=== PATIENT | female | born 1945 | race Caucasian/White ===

== ENCOUNTER 2016-09-22 09:50 | Inpatient (IN) ==
[2016-09-19 13:13] LABS: Appearance,Urine HAZY; Bilirubin,Urine NEG (NEG); Color,Urine YELLOW; Glucose,Urine (UA) NEGATIVE (NEG); Leukocyte Esterase,Urine NEG /uL (NEG); Nitrate,Urine NEG (NEG); Protein,Urine NEG (NEG); Specific Gravity,Urine 1.008 (1.000-1.035); Urine Blood NEG mg/dL (<0.03); Urobilinogen,Urine NEG (NEG)
[2016-09-19 13:17] LABS: Basophils # (Auto) 0.1 K/mcL (0.0-0.3); Basophils % (Auto) 0.8 % (0.0-2.0); Eosinophils # (Auto) 0.1 K/mcL (0.0-0.7); Eosinophils % (Auto) 0.9 % (0.0-7.0); Granulocytes % (Auto) 76.3 % (38.0-78.0); Lymphocytes # (Auto) 0.8 K/mcL (1.5-4.8); Lymphocytes % (Auto) 12.1 % (15.5-49.0); Mean Cell Volume 100.6 fL (80.0-100.0); Mean Corpuscular HGB Conc 33.6 g/dL (31.0-36.0); Mean Corpuscular Hemoglobin 33.8 pg (26.0-34.0); Monocytes # (Auto) 0.7 K/mcL (0.1-0.9); Monocytes % (Auto) 9.9 % (1.0-9.0); Platelet Count 188 K/mcL (140-440); RBC 3.69 M/mcL (4.00-5.20); Red Cell Distribution Width 12.5 % (11.5-14.5)
[2016-09-19 13:50] LABS: ALT/SGPT 36 U/l (0-40); Albumin/Globulin Ratio 1.2 (1.0-2.3); Alkaline Phosphatase 60 U/L (39-117); Blood Urea Nitrogen 22 mg/dl (8-23)
[~2016-09-22 09:50] MED LIST: ceFAZolin 1 GM VIAL IV SCH
--- NOTE | 2016-09-22 11:20 | XRay Report ---
CLINICAL INFORMATION: Preop COMPARISON: Lumbar MRI from 04/09/2016 FINDINGS: Anterior/posterior fusion and laminectomy changes at L4-5 are provided by interbody graft, pedicle screws and short body struts. There is 5 mm of L4 anterior subluxation which is unchanged. Remaining lumbar spine is anatomically aligned. Moderate L3-4 degenerative disc disease has progressed. No osseous abnormality. Soft tissues are normal. SI joints are unremarkable IMPRESSION: L4-5 anterior/posterior fusion changes with 6 mm of persistent L4 anterior subluxation - unchanged from prior MRI. Moderate L3-4 degenerative disease - worsening Interpreted and Authenticated by: Reggie Huber 09/22/16
[2016-09-22] MEDS ORDERED: DEXAMETHASONE 10 MG/ML VIAL IV ONE (14:25)
[2016-09-22] MEDS ORDERED: LIDOCAINE HCL/PF 100 MG/5 ML SYRINGE IV ONE (14:25)
[2016-09-22] MEDS ORDERED: KETAMINE 100 MG/ML ML IV ONE (14:25)
[2016-09-22] MEDS ORDERED: GLYCOPYRROLATE 0.2 MG/ML VIAL IV ONE (14:25)
[2016-09-22] MEDS ORDERED: TRANEXAMIC ACID 1,000 MG/10 ML VIAL IV ONE (14:25)
[2016-09-22] MEDS ORDERED: SUCCINYLCHOLINE 20 MG/ML ML IV ONE (14:25)
[2016-09-22] MEDS ORDERED: ONDANSETRON 4 MG/2 ML VIAL IV ONE (14:25)
[2016-09-22] MEDS ORDERED: PROPOFOL 200 MG/20 ML VIAL IV ONE (14:25)
[2016-09-22] MEDS ORDERED: MIDAZOLAM 5 MG/5 ML VIAL IV ONE (14:25)
[2016-09-22] MEDS ORDERED: fentaNYL 250 MCG/5 ML VIAL IV ONE (14:25)
[2016-09-22] MEDS ORDERED: GUM MASTIC/STORAX/MSAL/ALCOHOL 1 DOSE DROPERETTE TOPICAL ONE (15:59)
[2016-09-22] MEDS ORDERED: GELATIN SPONGE,ABSORBABLE 1 EACH SPONGE TOPICAL ONE (15:59)
[2016-09-22] MEDS ORDERED: GELATIN SPONGE,ABSORBABLE 1 GM POWDER TOPICAL ONE (15:59)
[2016-09-22] MEDS ORDERED: THROMBIN (BOVINE) 5,000 UNIT VIAL TOPICAL ONE (16:11)
[2016-09-22] MEDS ORDERED: LACTATED RINGERS 250 ML IV PRN (16:42)
[2016-09-22] MEDS ORDERED: IPRATROPIUM/ALBUTEROL 3 ML AMPUL.NEB NEB PRN (16:42)
[2016-09-22] MEDS ORDERED: ONDANSETRON 4 MG/2 ML VIAL IV PRN ×2 (16:42→17:50)
[2016-09-22] MEDS ORDERED: FLUMAZENIL 0.1 MG/ML ML IV PRN (16:42)
[2016-09-22] MEDS ORDERED: METHOCARBAMOL 1,000 MG/10 ML VIAL IV PRN (16:42)
[2016-09-22] MEDS ORDERED: MEPERIDINE 25 MG/ML SYRINGE IV PRN (16:42)
[2016-09-22] MEDS ORDERED: NALOXONE HCL 0.4 MG/ML VIAL IV PRN (16:42)
[2016-09-22] MEDS ORDERED: BENZOCAINE/MENTHOL 1 LOZENGE PO PRN ×2 (16:42→17:50)
[2016-09-22] MEDS ORDERED: PROMETHAZINE 25 MG/ML VIAL IV PRN (16:42)
[2016-09-22] MEDS ORDERED: HYDROmorphone 2 MG/ML SYRINGE IV PRN (16:42)
[2016-09-22] MEDS ORDERED: diphenhydrAMINE 50 MG/ML VIAL IV PRN (16:42)
[2016-09-22] MEDS ORDERED: LACTATED RINGERS 1,000 ML IV SCH (16:45)
[2016-09-22] MEDS ORDERED: BUPIVACAINE 0.25% 50 ML VIAL IJ ONE (17:49)
[2016-09-22] MEDS ORDERED: METHOCARBAMOL 750 MG TABLET PO PRN (17:50)
[2016-09-22] MEDS ORDERED: traMADol 50 MG TABLET PO PRN (17:50)
--- NOTE | 2016-09-22 17:50 | Brief Operative Note ---
Date of procedure: 09/22/16 Pre-op diagnosis: L3/4 stenosis and instability Post-op diagnosis: same Procedure: XLIF with PSIF L3/4 Grafts/Implants: Yes (nuvasive/depuy) Anesthesia: GETA Findings: stenosis Complications: none Surgeon: Clint Keene Case Technician: Dorothy Malave Estimated blood loss (cc): 200 Specimens Removed/Pathology: none sent
[2016-09-22] MEDS ORDERED: HYDROmorphone PCA 30 MG/30 ML PCA.VIAL IV PRN (17:53)
[2016-09-22] MEDS ORDERED: ACETAMINOPHEN 1,000 MG/100 ML BOTTLE IV ONE (18:00)
[2016-09-22] MEDS: fentaNYL 100 MCG/2 ML VIAL IV PRN ×2 (18:32→18:36)
[2016-09-22] MEDS: 0.9 % SODIUM CHLORIDE 1,000 ML IV SCH (19:37)
[2016-09-22] MEDS: SENNOSIDES 1 TABLET PO SCH (21:58)
[2016-09-22] MEDS: DOCUSATE SODIUM 100 MG CAPSULE PO SCH (21:58)
[2016-09-22] MEDS: ceFAZolin 1 GM VIAL IV SCH (21:58)
[2016-09-23] MEDS: 0.9 % SODIUM CHLORIDE 1,000 ML IV SCH (05:33)
[2016-09-23] MEDS: ceFAZolin 1 GM VIAL IV SCH (05:50)
--- NOTE | 2016-09-23 06:42 | Orthopedic Progress Note ---
Subjective Patient information: Note initiated : 09/23/16 at 6:40 am Service Date, if different from initiated Date: [] Patient: Janette Garcia 71 y/o F admitted on 09/22/16 for L3-4 Decompression with Fusion - Anterior Interbod. Chief Complaint: [] Principal diagnosis: lumbar stenosis Interval history: No specific complaints Objective Vital signs: Vital Signs Temp Pulse Resp BP BP Pulse Ox 09/23/16 03:45 97.4 F L 73 16 144/75 97 09/23/16 00:00 97.0 F L 62 16 126/74 100 09/22/16 22:43 100 09/22/16 21:41 51 L 129/69 98 09/22/16 20:41 57 L 151/89 99 09/22/16 20:11 59 L 155/73 100 09/22/16 19:41 60 159/68 100 09/22/16 19:37 20 09/22/16 19:26 56 L 158/82 99 09/22/16 19:11 58 L 157/83 100 09/22/16 19:05 96 09/22/16 18:56 95.4 F L 59 L 18 153/84 100 09/22/16 18:51 97.4 F L 61 13 132/59 98 09/22/16 18:36 62 14 152/72 97 09/22/16 18:21 63 12 130/90 100 09/22/16 18:06 97.3 F L 65 12 129/68 97 09/22/16 11:41 96.4 F L 75 16 154/96 96 Intake and Output 09/22/16 09/23/16 09/23/16 21:59 05:59 13:59 Intake Total 2400 / 2400 1193 / 1193 Output Total 560 / 560 415 / 415 Balance 1840 / 1840 778 / 778 Intake: IV 100 / 100 993 / 993 Sodium Chloride 0.9% 1, 993 / 993 000 ml @ 100 mls/hr IV . Q10H [facility] Rx#:[id number] Oral 100 / 100 200 / 200 IV - Manual Only 2200 / 2200 Output: Drainage 35 / 35 65 / 65 Back 35 / 35 65 / 65 Urine Catheter Amount 325 / 325 350 / 350 Estimated Blood Loss 200 / 200 Other: Weight 159 lb Intake & Output: Intake & Output 09/22/16 09/23/16 09/23/16 21:59 05:59 13:59 Intake Total 2400 / 2400 1193 / 1193 Output Total 560 / 560 415 / 415 Balance 1840 / 1840 778 / 778 Weight 159 lb Intake: IV 100 / 100 993 / 993 Sodium Chloride 0.9% 1, 993 / 993 000 ml @ 100 mls/hr IV . Q10H [facility] Rx#:[id number] Oral 100 / 100 200 / 200 IV - Manual Only 2200 / 2200 Output: Drainage 35 / 35 65 / 65 Back 35 / 35 65 / 65 Urine Catheter Amount 325 / 325 350 / 350 Estimated Blood Loss 200 / 200 Dressing: Yes clean, Yes dry Weight bearing status: full Neurological exam IM: Yes neurovascular intact - Labs CBC & BMP: 09/19/16 11:29 09/19/16 11:29 Labs: Orthopedic Labs 09/19/16 11:29 PT 14.3 INR 1.1 09/23/16 09/19/16 05:50 11:29 Hgb Pending 12.5 Hct Pending 37.1 Assessment and Plan (1) Lumbar stenosis with neurogenic claudication mobilize with physical therapy Status: Acute
[2016-09-23] MEDS: LEVOTHYROXINE 88 MCG TABLET PO SCH (07:04)
[2016-09-23 07:21] LABS: Blood Urea Nitrogen 15 mg/dl (8-23)
--- NOTE | 2016-09-23 08:44 | Operative Note ---
DATE OF OPERATION: 09/22/2016 PREOPERATIVE DIAGNOSIS: Transitional breakdown at the L3-L4 level, which is above an L4-L5 fusion. She has stenosis and instability at this L3-L4 level. POSTOPERATIVE DIAGNOSIS: Transitional breakdown at the L3-L4 level, which is above an L4-L5 fusion. She has stenosis and instability at this L3-L4 level. OPERATION PROPOSED: 1. Anterior interbody fusion via a lateral retroperitoneal approach L3-L4, application of prosthetic device in interbody space L3-L4. 2. Posterior removal and revision of hardware L4-L5. 3. Posterior segmental instrumentation L3 through L5. 4. Posterior/posterolateral fusion L3-L4. 5. Lumbar decompression L3-L4. OPERATION PERFORMED: 1. Anterior interbody fusion via a lateral retroperitoneal approach L3-L4, application of prosthetic device in interbody space L3-L4. 2. Posterior removal and revision of hardware L4-L5. 3. Posterior segmental instrumentation L3 through L5. 4. Posterior/posterolateral fusion L3-L4. 5. Lumbar decompression L3-L4. OPERATING SURGEON: Clint Keene MD MOBILE UI DEVELOPER: Dorothy Malave PA-C INDICATION: This is a lady who has had a previous decompression and fusion. She has developed progressive wear and tear and developed significant stenosis and instability at the L3-L4 level, which is just above. She has failed conservative measures. OPERATION IN DETAIL: Informed consent was obtained. She was taken to the operating room where she was provided with appropriate anesthetic and prophylactic antibiotics. She was carefully positioned and the incision was made over her left flank, centered on the L3-L4 interspace. I advanced through the abdominal musculature and into the retroperitoneal space. I spread into the retroperitoneal space and then advanced to the psoas. I then passed through the psoas muscle using an EMG guided probe. I docked at the L3-4 level. I sequentially dilated and placed a self-retaining retractor at the L3-L4 interspace. I incised the annulus. A Gandhi was passed across the disk space between the contralateral annulus. I then intensely curetted the disc space, debriding down to subchondral bone. I then filled a cage with morcellized bone graft and the cage was then impacted into the site prepared for it. I irrigated thoroughly and closed with a 0 Vicryl interrupted fashion, 2-0 Vicryl inverted deep dermal, and running subcuticular. I then turned my attention to the posterior portion of the procedure. A midline incision was made. I dissected down to expose the spinous process and lamina of L3 through L5. I then placed a self-retaining retractor. Her existing hardware at the L4-L5 level was identified. I debrided soft tissue from this existing hardware and then engaged the set screw that was removed. The sophia was removed. I removed the L4 pedicle screw and repaired, I then placed a gearshift awl cannulating the pedicle of L3. The L3 pedicle was then tapped, both on the right and on the left. I was again using EMG guidance. I probed the pedicle and placed an appropriate length pedicle screw at L3 bilaterally and a new pedicle screw was placed at L4. A radiograph was obtained to confirm the position of the hardware. I then performed the decompression. This was done by removing the inferior one-half of the spinous process and lamina of L3 and superior portion of L5. I debrided the ligamentum flavum. I debrided the hypertrophied medial border of the facet joints. At the end of the decompression, the central canal, lateral recess, and opening the neural foramen were very adequately patent. I then performed the posterior and posterolateral fusion which was done by extensively decorticating the posterolateral aspect of the spine. I packed morcellized graft into and against the decorticated posterolateral aspect of the spine to allow perfusion. The procedure was completed by compressing across the interbody graft. I tightened and torqued the sophia into the top-loading pedicle screws. The wounds were then irrigated thoroughly with pulsatile lavage and IrriSept irrigation prior to placing a bone graft. I closed with an 0 Vicryl in interrupted fashion, 2-0 Vicryl inverted deep dermal, and running subcuticular. The procedure was tolerated well. No complications. Estimated blood loss 200 mL. ALEN:aranza Job ID: [id number] Doc ID: [id number] Clint Keene MD
[2016-09-23] MEDS: ESTROGENS, CONJUGATED 0.625 MG TABLET PO SCH (09:02)
[2016-09-23] MEDS: LOSARTAN 50 MG TABLET PO SCH (09:02)
[2016-09-23] MEDS: FUROSEMIDE 20 MG TABLET PO SCH (09:02)
[2016-09-23] MEDS: DOCUSATE SODIUM 100 MG CAPSULE PO SCH ×2 (09:03→19:58)
[2016-09-23] MEDS: HYDROmorphone 2 MG TABLET PO PRN ×5 (09:03→23:23)
[2016-09-23] MEDS: Nebivolol Hcl [Bystolic] 10 MG Tablet PO SCH (11:39)
--- NOTE | 2016-09-23 17:55 | Discharge Summary ---
Providers - Providers Patient information: Note initiated : 09/23/16 at 5:51 pm Service Date, if different from initiated Date: [] Patient: Janette Garcia 71 y/o F admitted on 09/22/16 for L3-4 Decompression with Fusion - Anterior Interbod. Chief Complaint: [] Date of admission: 09/22/16 Discharge date: 09/24/16 Attending physician: Clint Keene Hospitalization Hospital course: Patient was admitted for lumbar spinal stenosis with instability and underwent a extreme lateral interbody fusion with posterior decompression and fusion. She tolerated the procedure well and was maintained on prophylactic antibiotics throughout her stay. Her pain was well managed and she tolerated all medications well. She was ambulating well with physical therapy prior to discharge. Discharge diagnosis: S/P XLIF with posterior decompression and instumentation Reason for admission: Spinal stenosis with instability Exam - Exam Incision healing: Yes Incision draining: No Incision red: No Incision swollen: No Incision inflamed: No Clean and dry: Yes Weight bearing status: full Ortho Discharge - Spine - Patient Instructions Discharge Diet: Regular Diet Activity: activity as tolerated Spine Protocol: Limit bending and stooping. No heavy lifting. Wear brace/collar at all times except when showering and sleeping. Dressing Care: May shower in 2 days Additional Dressing Instructions: May Shower 48 hours post-operative and replace with dry dressing after shower. Patient Education: Lumbar Spinal Fusion (DC) Additional Instructions: limit bending or stooping. wear brace at all times except when showering.. May shower in 2 days. remove dressing before shower. Replace with dry dressing after showering. Use over the counter stool softeners or laxatives to avoid constipation associated with narcotic use. Call your physician for fever greater than 100.5 or pain not controlled by medication - Follow Up Plan Follow Up Appointments: Dorothy Malave PA-C [Physician Evaluation Advisor] - Ahsan Mandel [Yard Conductor] - Disposition: Home, Self-Care Prognosis: Fair Rehab Potential: Fair Overall status at discharge: patient is progressing back to baseline - Orders For Discharge Prescriptions: Docusate Sodium [Colace] 100 mg PO BID #20 capsule HYDROmorphone [Dilaudid] 2 mg PO Q4-6HP PRN #60 tablet PRN Reason: Pain Methocarbamol [Robaxin] 750 mg PO Q6HP PRN #40 tablet PRN Reason: Muscle Spasm Pending Studies Resuscitation Status Full Code Diet Regular Diet Start ThuSep 23 Breakfast Docusate Sodium (Colace) 100 mg PO BID [facility] Last Admin: 09/23/16 09:03 Dose: 100 mg Admin: 09/22/16 21:58 Dose: 100 mg Estrogens Conjugated (Premarin) 1.25 mg PO DAILY [facility] Last Admin: 09/23/16 09:02 Dose: 1.25 mg Furosemide (Lasix) 20 mg PO QDAY [facility] Last Admin: 09/23/16 09:02 Dose: 20 mg Hydromorphone HCl (Dilaudid) 2 mg PO Q3-6HP PRN PRN Reason: Pain Last Admin: 09/23/16 16:18 Dose: 2 mg Admin: 09/23/16 13:15 Dose: 2 mg Admin: 09/23/16 09:03 Dose: 2 mg Hydromorphone HCl (Dilaudid [employer] Prosec[employer]) 30 mg IV UD PRN; Protocol PRN Reason: Pain Last Admin: 09/22/16 19:37 Dose: 30 mg Levothyroxine Sodium (Synthroid) 88 mcg PO QAMAC [facility] Last Admin: 09/23/16 07:04 Dose: 88 mcg Losartan Potassium (Cozaar) 100 mg PO DAILY [facility] Last Admin: 09/23/16 09:02 Dose: 100 mg Nebivolol Hcl [ Bystolic] 10 Mg Tablet 1 dose PO DAILY [facility] Last Admin: 09/23/16 11:39 Dose: Not Given Senna (Senokot) 2 tab PO HS [facility] Last Admin: 09/22/16 21:58 Dose: 2 tab Shift Summary 09/23/16 15:05 Shift Summary by Farnaz Lewis Removed peterson at 1030 AM and has voided 300 ml since its removal. Dilaudid [employer]EM[employer] discontinued this morning. Has had dilaudid PO x 2 which is controlling the pain well. Pt has aspen brace at home and Dr. Keene is aware and is okay with her ambulating here without it with assistance and FWW. Pt has saline lock to right forearm. Dressing CDI. CMS intact. Has hx edema to bilat legs, wears graduated pressure stockings at home. Ambulated 3x in feng w/ SBA and FWW, has practiced the stairs, and does bed transfers well. supportive. Will likely discharge home tomorrow. Pleasant and cooperative with cares. Makes needs known. Uses call lt. Initialized on 09/23/16 15:05 - END OF NOTE
[2016-09-23] MEDS: SENNOSIDES 1 TABLET PO SCH (19:57)
[2016-09-24] MEDS: HYDROmorphone 2 MG TABLET PO PRN ×2 (03:24→08:13)
[2016-09-24] MEDS: LEVOTHYROXINE 88 MCG TABLET PO SCH (07:13)
[2016-09-24] MEDS: ESTROGENS, CONJUGATED 0.625 MG TABLET PO SCH (08:12)
[2016-09-24] MEDS: LOSARTAN 50 MG TABLET PO SCH (08:13)
[2016-09-24] MEDS: Nebivolol Hcl [Bystolic] 10 MG Tablet PO SCH (08:13)
[2016-09-24] MEDS: DOCUSATE SODIUM 100 MG CAPSULE PO SCH (08:13)
[2016-09-24] MEDS: FUROSEMIDE 20 MG TABLET PO SCH (08:14)
[2016-09-24] MEDS ORDERED: PNEUMOCOCCAL 23-VAL P-SAC VAC 0.5 ML VIAL IM ONE (10:00)
== END 2016-09-24 09:10 | disposition home or self-care (01) | DRG 460 ==
LOC: MEDSUR 09:50
PROVIDERS: ADMIT Orthopaedic Surgery Orthopaedic Surgery of the Spine; ATTEND Orthopaedic Surgery Orthopaedic Surgery of the Spine